=== PATIENT | female | born 1955 | race African-American/Black ===

== ENCOUNTER 2018-11-15 12:39 | Observation (INO) ==
[2018-11-15] MEDS ORDERED: GLUCAGON 1 MG VIAL IM PRN (16:02)
[2018-11-15] MEDS ORDERED: DEXTROSE 50% 25 GM/50 ML VIAL IV PRN (16:02)
[2018-11-15] MEDS ORDERED: ACETAMINOPHEN 325 MG TABLET PO PRN (16:02)
[2018-11-15] MEDS ORDERED: ONDANSETRON 4 MG/2 ML VIAL IV PRN (16:02)
[2018-11-15] MEDS ORDERED: MAGNESIUM HYDROXIDE SUSP 30 ML UDCUP PO PRN (16:09)
[2018-11-15] MEDS: INSULIN REGULAR 100 UNIT/ML SUBCUT SCH ×2 (17:15→20:40)
[2018-11-15 17:26] LABS: Troponin I < 0.015 NG/ML (0.00-0.045)
[2018-11-15 20:30] LABS: Troponin I < 0.015 NG/ML (0.00-0.045)
[2018-11-15] MEDS: DOCUSATE SODIUM 100 MG CAPSULE PO SCH (20:34)
[2018-11-15] MEDS: POLYETHYLENE GLYCOL POWDER 17 GM PACK PO SCH (20:34)
[2018-11-15] MEDS: metFORMIN 500 MG TABLET PO SCH (20:34)
[2018-11-15] MEDS ORDERED: ENOXAPARIN 40 MG/0.4 ML SYRINGE SUBCUT SCH (21:00)
[2018-11-15] MEDS ORDERED: ATORVASTATIN 20 MG TABLET PO SCH (21:00)
[2018-11-15 23:08] LABS: Troponin I < 0.015 NG/ML (0.00-0.045)
[2018-11-16 04:48] LABS: Basophils % 0.3 % (0.0-0.8); Eosinophils # 0.1 10*3/uL (0.0-0.87); Eosinophils % 1.4 % (0.00-10.9); Hematocrit 39.2 VOL% (35.7-47.0); Hemoglobin 12.9 GM/DL (12.0-16.0); Immature Granulocytes % 0.4 %; Immature Granulocytes Absolute 0.03 #; Lymphocytes # 2.7 10*3/uL (1.4-4.0); Lymphocytes % 38.7 % (21.3-54.2); Mean Corpuscular HGB Conc 32.9 GM/DL (32-36); Mean Platelet Volume 11.2 FL (9.6-12.0); Monocytes % 5.6 % (1.7-12.7); Neutrophils % 53.6 % (38.7-73.9); Platelet Count 192 T/CUMM (130-400); Red Blood Count 4.31 MC/CUMM (3.8-5.5); Red Cell Distribution Width 12.5 % (9.3-17.3)
[2018-11-16 05:11] LABS: Osmolality,Calculated 279.4 MOS/KG (273-304); Risk Ratio 3.82; Thyroid Stimulating Hormone 0.435 uIU/ml (0.358-3.74); VLDL CHOLESTEROL 17.4 MG/DL
[2018-11-16] MEDS ORDERED: LISINOPRIL 20 MG TABLET PO SCH (09:00)
[2018-11-16] MEDS ORDERED: PANTOPRAZOLE 40 MG TABLET PO SCH (09:00)
[2018-11-16] MEDS: INSULIN REGULAR 100 UNIT/ML SUBCUT SCH ×3 (11:01→17:31)
[2018-11-16] MEDS: POLYETHYLENE GLYCOL POWDER 17 GM PACK PO SCH (12:03)
[2018-11-16] MEDS: metFORMIN 500 MG TABLET PO SCH (12:04)
[2018-11-16] MEDS: DOCUSATE SODIUM 100 MG CAPSULE PO SCH (12:04)
[2018-11-16 16:28] VITALS: BP 110/66
[2018-11-22] MEDS ORDERED: ERGOCALCIFEROL 50,000 UNIT CAPSULE PO SCH (09:00)
== END 2018-11-16 20:20 | disposition home or self-care (01) ==
LOC: N.TELES → SUATTDRO 14:21
PROVIDERS: ADMIT Internal Medicine; ATTEND Internal Medicine